=== PATIENT | female | born 1960 | race Caucasian/White ===

== ENCOUNTER 2023-01-07 10:54 | Emergency (ER) | payer OTHER, SELFPAY ==
[2023-01-07 11:00] VITALS: BP 141/78; PULSE 73; RESP 18; TEMP 36.9; O2SAT 98; BMI 22.3
--- NOTE | 2023-01-07 11:07 | DI.RAD.S_ITS ---
PROCEDURE: XR WRIST LT MIN 3V INDICATIONS: fall, deformity left wrist TECHNIQUE: 4 views of the wrist were acquired. COMPARISON: None. FINDINGS: Bones: Distal radial impacted fracture with radiocarpal involvement. Ulnar styloid unremarkable. Degenerative arthritic changes noted particularly at the 1st carpometacarpal joint Soft tissues: No suspicious soft tissue calcifications. IMPRESSION: Comminuted intra-articular distal radial fracture Osteoarthritis Approved by: Juan J Escobedo M.D. on 01/07/2023 at 12:19
--- NOTE | 2023-01-07 12:07 | PC.NURSE ---
Wedding band removed with hand cream. rinsed with water. ring dried off and placed in a sterile container. placed container in her [employer] bag. pt witnessed
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
--- NOTE | 2023-01-07 12:53 | PC.NURSE ---
Sugar tong splint was applied with fluff gauz against her skin to prevent breakdown, then was wrapped with levon wrap. Patient stated it feels much better after having splint applied with shoulder immobilizer. She was able to feel and move her fingertips, cap refill < 2 seconds.
== END 2023-01-07 12:45 | disposition home or self-care (01) ==
PROVIDERS: Emergency Provider Emergency Medicine
DX: S52.502A Unspecified fracture of the lower end of left radius, initial encounter for closed fracture (principal); S09.90XA Unspecified injury of head, initial encounter; W18.30XA Fall on same level, unspecified, initial encounter
CPT/HCPCS: 29125; 73110; 99283; 99284